=== PATIENT | female | born 1965 | race African-American/Black ===

== ENCOUNTER 2019-11-08 15:47 | Emergency (ER) | payer MEDICAID ==
[~2019-11-08] VITALS: Ht 165.1 cm; Wt 115.0 kg
[2019-11-08] MEDS ORDERED: KETOROLAC 30MG/ML VIAL IV ONE (16:30)
[2019-11-08] MEDS ORDERED: DIAZEPAM 5 MG TABLET PO ONE (16:30)
[2019-11-08] MEDS ORDERED: SODIUM CHLORIDE 0.9% 500 ML IV ONE (18:10)
[2019-11-08] MEDS ORDERED: ONDANSETRON HCL 4MG/2ML INJ IV ONE (18:45)
[2019-11-08] MEDS ORDERED: MORPHINE SULFATE 4 MG/ML CPJ (NOT FOR IM USE) IV ONE (18:45)
[2019-11-08 23:02] VITALS: BP 119/73
== END 2019-11-08 23:24 | disposition home or self-care (01) ==
LOC: ER 15:47
DX: S09.8XXA Other specified injuries of head, initial encounter (principal); G89.11 Acute pain due to trauma; M54.2 Cervicalgia; M54.6 Pain in thoracic spine; M54.5 Low back pain; R20.0 Anesthesia of skin; I10 Essential (primary) hypertension; V86.01XA Driver of ambulance or fire engine injured in traffic accident, initial encounter; Y93.89 Activity, other specified; Y92.410 Unspecified street and highway as the place of occurrence of the external cause; E11.9 Type 2 diabetes mellitus without complications; M47.812 Spondylosis without myelopathy or radiculopathy, cervical region; M40.202 Unspecified kyphosis, cervical region
CPT/HCPCS: 70450; 72125; 72128; 72131; 72141; 96374; 96375; 99284; J1885; J2270; J2405; J7040; Z7610